=== PATIENT | male | born 1960 | race Caucasian/White ===

== ENCOUNTER 2017-07-22 07:24 | Day surgery (SDC) | payer BC ==
[~2017-07-22] VITALS: Ht 170.2 cm; Wt 111.3 kg
[~2017-07-22 07:24] MED LIST: CORDARONE200 MG PO; ELIQUIS5 MG PO; FISH OIL 1,0001 EAC7 PO; GLUCOSAMINE CH PO; METOPROLOL TART50 MG PO; MULTIVITAMIN1 EAC2 PO; NIACIN FLUSH F400 MG PO; VITAMIN C1000 MG PO; VITAMIN D35000 UNIT PO
[2017-07-22 09:10] LABS: HEMATOCRIT 50.7 % (38.0-50.0); HEMOGLOBIN 17.5 G/DL (12.5-16.6); MCH 30.9 PG (29.0-34.0); MCHC 34.5 G/DL (30.0-36.0); MCV 89.4 FL (86-99); PLATELET COUNT 261 K/uL (156-360); RBC DIS.WIDTH-CV 12.5 % (11.8-14.6); RBC DIS.WIDTH-SD 41.1 % (39-53); RED BLOOD COUNT 5.67 M/uL (4.00-5.50); WHITE BLOOD COUNT 7.3 K/uL (4.1-10.2)
[2017-07-22 09:36] LABS: CHLORIDE 107 MEQ/L (99-109); POTASSIUM 4.1 MEQ/L (3.7-5.4); SODIUM 141 MEQ/L (136-147)
[2017-07-22 09:41] LABS: CREATININE 1.5 MG/DL (0.6-1.3); GFR ESTIMATE (CALCULATED) 51 mL/min/ (58.99-99999); GLUCOSE 96 mg/dL (70-99); UREA NITROGEN (BUN) 28 mg/dL (9-23)
[2017-07-22 12:15] VITALS: BP 157/78
[2017-07-22 15:31] VITALS: BP 132/90
[2017-07-22 20:25] VITALS: BP 135/80
[2017-07-22 22:26] VITALS: BP 126/90
[2017-07-23 04:41] VITALS: BP 138/94
[2017-07-23 05:52] LABS: BASOPHIL (%) 0.7 % (0-1); BASOPHIL COUNT 0.1 K/uL (0-0.1); EOSINOPHIL (%) 3.1 % (0-5); EOSINOPHIL COUNT 0.4 K/uL (0-0.3); HEMOGLOBIN 16.7 G/DL (12.5-16.6); IMMATURE GRANULOCYTE (%) 0.4 % (0.0-0.7); LYMPHOCYTE (%) 22.4 % (15-42); LYMPHOCYTE COUNT 2.5 K/uL (1.0-2.8); MCH 30.9 PG (29.0-34.0); MCHC 34.1 G/DL (30.0-36.0); MCV 90.6 FL (86-99); MONOCYTE (%) 9.5 % (3-12); MONOCYTE COUNT 1.1 K/uL (0-0.8); NEUTROPHIL (%) 63.9 % (45-76); NEUTROPHIL COUNT 7.2 K/uL (1.8-6.4); PLATELET COUNT 266 K/uL (156-360); RBC DIS.WIDTH-CV 12.6 % (11.8-14.6); RBC DIS.WIDTH-SD 41.3 % (39-53); RED BLOOD COUNT 5.41 M/uL (4.00-5.50); WHITE BLOOD COUNT 11.2 K/uL (4.1-10.2)
[2017-07-23 06:13] LABS: CHLORIDE 105 MEQ/L (99-109); CREATININE 1.4 MG/DL (0.6-1.3); GFR ESTIMATE (CALCULATED) 56 mL/min/ (58.99-99999); GLUCOSE 91 mg/dL (70-99); POTASSIUM 4.5 MEQ/L (3.7-5.4); SODIUM 140 MEQ/L (136-147); UREA NITROGEN (BUN) 25 mg/dL (9-23)
[2017-07-23 08:58] VITALS: BP 141/85
[2017-07-23 11:29] VITALS: BP 134/90
[2017-07-23] MEDS ORDERED: ASPIR-LOW81 MG PO (12:10)
[2017-07-23] MEDS ORDERED: ATORVASTATIN CA80 MG PO (12:10)
[2017-07-23] MEDS ORDERED: CLOPIDOGREL75 MG PO (12:10)
== END 2017-07-23 13:00 | disposition home or self-care (01) ==
LOC: CATH 07:24 → 2SOUTH 09:51 → 4EAST 09:51 → ENRESERV 10:00 → 4EAST 12:14
PROVIDERS: Internal Medicine Cardiovascular Disease
DX: I25.10 Atherosclerotic heart disease of native coronary artery without angina pectoris (principal); I48.91 Unspecified atrial fibrillation; Z79.01 Long term (current) use of anticoagulants; I10 Essential (primary) hypertension; E78.5 Hyperlipidemia, unspecified; E66.01 Morbid (severe) obesity due to excess calories; Z68.38 Body mass index [BMI] 38.0-38.9, adult; Z88.0 Allergy status to penicillin
CPT/HCPCS: 80048; 85025; 85027; 85347; 93005; C1769; C1874; C1887; G0378; J0461; J1644; J2250; J3010